=== PATIENT | female | born 1990 | race Caucasian/White ===

== ENCOUNTER 2021-04-21 09:49 | Emergency (ER) | payer BC ==
--- NOTE | 2021-04-21 10:24 | EDM.PDOC ---
ED HPI GENERAL MEDICAL PROBLEM - General Chief Complaint: Abdominal Pain Stated Complaint: SHARP PAIN LEFT SIDE Time Seen by Provider: 04/21/21 10:10 Source of Information: Reports: Patient History Limitations: Reports: No Limitations - History of Present Illness INITIAL COMMENTS - FREE TEXT/NARRATIVE: 30-year-old female with sudden onset of left flank pain about 1 hour ago, nausea but no vomiting. [place] a bowel movement may help but it did not, no fevers or chills, no pleuritic pain or shortness of breath. She is otherwise healthy. No pain like this in the past. She has intense pain in the left upper quadrant radiating to the back. Onset: Sudden Duration: Hour(s): (1 hour) Location: Reports: Abdomen (Upper left abdomen to the left flank) Quality: Reports: Sharp, Stabbing Improves with: Reports: None Worsens with: Reports: None Associated Symptoms: Reports: Other (Nausea but no vomiting) Left Flank Pain Score (Numeric/FACES): 4 - Related Data Allergies Allergy/AdvReac Type Severity Reaction Status Date / Time Penicillins Allergy Hives Verified 04/21/21 10:07 Home Meds: Home Meds NK [No Known Home Meds] 04/21/21 [History] Social & Family History - Tobacco Use Tobacco Use Status *Q: Never Tobacco User - Recreational Drug Use Recreational Drug Type: Reports: Marijuana/Hashish Recreational Drug Use Frequency: Rarely ED ROS GENERAL - Review of Systems Review Of Systems: See Below Constitutional: Denies: Fever, Chills HEENT: Reports: No Symptoms Respiratory: Reports: No Symptoms Cardiovascular: Reports: No Symptoms GI/Abdominal: Reports: Abdominal Pain (Left upper quadrant) : Reports: Flank Pain (Left side). Denies: Frequency, Urgency Musculoskeletal: Reports: No Symptoms Skin: Reports: No Symptoms Neurological: Reports: No Symptoms Psychiatric: Reports: No Symptoms ED EXAM, GENERAL - Physical Exam Exam: See Below Exam Limited By: No Limitations General Appearance: Alert, Anxious, Mild Distress (Looks fairly uncomfortable) Eye Exam: Bilateral Eye: Normal Inspection Head: Atraumatic Respiratory/Chest: Lungs Clear Cardiovascular: Regular Rate, Rhythm GI/Abdominal: Soft, Tender (Minimal tenderness in the left upper quadrant, no guarding or rebound) Back Exam: CVA Tenderness (L) (Does react with some tenderness to percussion of the left flank) Extremities: Normal Inspection Neurological: Alert, Oriented Course - Vital Signs Last Recorded V/S: Last Vital Signs Temp 97.6 F 04/21/21 10:05 Pulse 71 04/21/21 10:05 Resp 16 04/21/21 10:05 BP 124/70 04/21/21 10:05 Pulse Ox 100 04/21/21 10:05 - Orders/Labs/Meds Labs: Laboratory Tests 04/21/21 Range/Units 10:23 Urine Color Yellow (YELLOW) Urine Appearance Slightly cloudy A (CLEAR) Urine pH 8.0 (5.0-8.0) Ur Specific [place] 1.020 (1.008-1.030) Urine Protein Negative (NEGATIVE) mg/dL Urine Glucose (UA) Negative (NEGATIVE) mg/dL Urine Ketones Negative (NEGATIVE) mg/dL Urine Occult Blood Large H (NEGATIVE) Urine Nitrite Negative (NEGATIVE) Urine Bilirubin Negative (NEGATIVE) Urine Urobilinogen 0.2 (0.2-1.0) EU/dL Ur Leukocyte Esterase Negative (NEGATIVE) Urine RBC 75-100 H (0-5) Urine WBC Not seen (0-5) Ur Epithelial Cells Rare Amorphous Sediment Not seen Urine Bacteria Rare Urine Mucus Not seen Meds: Medications Discontinued Medications Generic Name Dose Route Start Last Admin Trade Name Freq PRN Reason Stop Dose Admin Ketorolac Tromethamine 30 mg 04/21/21 10:19 04/21/21 10:27 Ketorolac 30 Mg/Ml Sdv IM 04/21/21 10:20 30 mg ONETIME ONE Administration Tamsulosin HCl 0.4 mg 04/21/21 11:31 04/21/21 11:36 Tamsulosin 0.4 Mg Cap.Er PO 04/21/21 11:32 0.4 mg ONETIME ONE Administration - Re-Assessments/Exams Free Text/Narrative Re-Assessment/Exam: 04/21/21 10:23 A UA was obtained and sent for analysis, 30 mg of IM Toradol was given and she will obtain abdomen pelvis CT scan without contrast to assess for left renal stone. 04/21/21 11:52 Urine showed 75-100 RBCs per high-power field without infection, and CT confirmed a distal small left ureteral stone. She was given a dose of Flomax, and 10 additional doses of Toradol and hydrocodone for extra pain control if needed. Still some symptoms on discharge. She can return if pain is uncontrollable or she becomes worse such as fever or persistent nausea and vomiting. Departure - Departure Time of Disposition: 11:55 Disposition: Home, Self-Care 01 Clinical Impression: Renal colic on left side, Nephrolithiasis - Discharge Information Instructions: Kidney Stones, [id number] Referrals: PCP,None [Primary Care Provider] - Forms: ED Department Discharge Care Plan Goals: Take 1 ketorolac pill every 4-6 hours for pain control, adding hydrocodone as needed for breakthrough pain. Activity as tolerated, and return if worsening such as persistent nausea and vomiting, fever, or uncontrolled pain. Consider rechecking in 2 to 3 days if still having some symptoms. Sepsis Event Note (ED) - Focused Exam Vital Signs: Vital Signs Temp Pulse Resp BP Pulse Ox 04/21/21 10:05 97.6 F 71 16 124/70 100
[2021-04-21] MEDS: Ketorolac 30 MG/ML SDV IM ONE (10:27)
--- NOTE | 2021-04-21 11:05 | CT ---
Abdomen Pelvis wo Cont CLINICAL HISTORY: Left flank pain COMPARISON: None. TECHNIQUE: Axial tomographic images are obtained from the dome of the diaphragm to the pubic symphysis without IV contrast enhancement. No oral contrast was used. The dosage reduction and iterative reconstruction techniques employed. FINDINGS: The lung bases are clear. The liver shows no mass or biliary dilatation. The gallbladder has a normal appearance. The spleen has a normal size and shape. The pancreas shows no mass or biliary dilatation. The adrenal glands appear normal bilaterally. The right kidney is free of mass, stones or hydronephrosis the left kidney shows a punctate calcification in the lower pole. There is mild pelvocaliectasis. There is mild dilatation of the left proximal ureter. The mid to distal ureter is not well seen. There is a punctate calcification near the bladder base posteriorly. This is near the UVJ. The distal ureteral stone is not excluded. In the left upper quadrant there is a curvilinear air-filled focus. This has some adjacent streak artifact. This approximate 5 mm in diameter and approximately 6 cm in length. This is in the region of the distal duodenum or proximal jejunum just below the stomach. There is an ID in place. IMPRESSION: Mild left-sided pelvocaliectasis. Possible tiny stone in the distal left ureter near the UVJ. There is also a punctate stone lower pole left kidney. Curvilinear air-filled structure in the left upper quadrant is most likely within bowel and may represent air in the bowel with peristalsis. Intestinal foreign body is not excluded
[2021-04-21] MEDS: Tamsulosin 0.4 MG Cap.ER PO ONE (11:36)
== END 2021-04-21 12:05 | disposition home or self-care (01) ==
LOC: JP.ED 09:49
DX: N20.2 Calculus of kidney with calculus of ureter (principal); Z88.0 Allergy status to penicillin
CPT/HCPCS: 74176; 74176-26; 81001; 96372; 99284-25; A9270-GY; J1885